=== PATIENT | female | born 2000 | race Native Hawaiian/Other Pacific Islander ===

== ENCOUNTER 2022-08-03 11:59 | Emergency (ER) | payer OTHER ==
[~2022-08-03] VITALS: Ht 162.6 cm; Wt 63.5 kg
[2022-08-03 12:09] VITALS: TEMP 97.7
[2022-08-03] MEDS ORDERED: PAXIL10 MG PO (12:10)
[2022-08-03 13:09] VITALS: BP 110/62
== END 2022-08-03 13:11 | disposition home or self-care (01) ==
LOC: ED 11:59
DX: T78.49XA Other allergy, initial encounter (principal); X58.XXXA Exposure to other specified factors, initial encounter; Y92.89 Other specified places as the place of occurrence of the external cause
CPT/HCPCS: 96372; 99283; J1200; J2930